=== PATIENT | male | born 1955 | race Two or more races ===

== ENCOUNTER 2023-04-19 05:30 | Day surgery (SDC) | payer OTHER ==
[~2023-04-19] VITALS: Ht 177.8 cm; Wt 86.2 kg
[~2023-04-19 05:30] MED LIST: LOSARTAN-HCTZ1 EACH PO
== END 2023-04-19 09:50 | disposition home or self-care (01) ==
LOC: CIR.AMB 05:30
PROVIDERS: ATTEND Surgery Surgery of the Hand
DX: M65.312 Trigger thumb, left thumb (principal); M65.332 Trigger finger, left middle finger; M67.844 Other specified disorders of tendon, left hand; Z20.822 Contact with and (suspected) exposure to COVID-19; D68.9 Coagulation defect, unspecified; I10 Essential (primary) hypertension